=== PATIENT | female | born 1990 | race Caucasian/White ===

== ENCOUNTER 2019-03-05 15:39 | Emergency (ER) | payer MEDICAID ==
[~2019-03-05] VITALS: Ht 152.4 cm; Wt 68.2 kg
--- NOTE | 2019-03-05 16:11 | NUR ---
DR. CAMPBELL NOTIFIED AND SITTER ORDERED. SITTER IN LINE OF SIGHT. NOTIFIED CHARGE NURSE AND ATTENDING IN REGARDS TO ASSESSMENT FINDINGS. RESOURCES GIVEN TO PT AND SAFETY PLAN INTITATED.
[2019-03-05 16:16] VITALS: Ht 152.4 cm; Wt 68.2 kg
[2019-03-05] MEDS ORDERED: LITHIUM CARBON300 MG PO (16:17)
[2019-03-05] MEDS ORDERED: KLONOPIN1 MG PO (16:17)
[2019-03-05] MEDS ORDERED: PROZAC40 MG PO (16:18)
[2019-03-05] MEDS ORDERED: MINIPRESS2 MG PO (16:22)
[2019-03-05 16:37] LABS: APPEARANCE SL CLDY (CLEAR); BILIRUBIN NEGATIVE (NEGATIVE); COLOR YELLOW (YELLOW); GLUCOSE NEGATIVE (NEGATIVE); KETONE NEGATIVE (NEGATIVE); NITRITE NEGATIVE (NEGATIVE); PROTEIN NEGATIVE (NEGATIVE); SPECIFIC GRAVITY 1.005 (1.005-1.020); UROBILINOGEN NORMAL (NORMAL)
[2019-03-05 16:46] LABS: BASOPHILS 0.4 % (0-2); EOSINOPHILS 2.5 % (0-7); HEMATOCRIT 40.1 % (36.0-48.0); HEMOGLOBIN 13.6 g/dL (12-16); IMMATURE GRANULOCYTES 0.2 % (0-5); LYMPHOCYTES 30.8 % (15-50); MCHC 33.9 g/dL (31.0-37.0); MCV 88.5 fL (80.0-100.0); MEAN PLATELET VOLUME 9.6 fL (7.4-10.4); MONOCYTES 6.9 % (2-11); NEUTROPHILS 59.2 % (40-80); PLATELET COUNT 223 10x3/uL (130-400); RBC 4.53 10x6/uL (4.00-5.40); RDW 13.1 % (11.5-14.5); WBC 9.7 10x3/uL (4.8-10.8)
[2019-03-05 16:46] LABS: UDS - AMPHET NEGATIVE QUAL (NEGATIVE); UDS - BENZO NEGATIVE QUAL (NEGATIVE); UDS - COCAINE NEGATIVE QUAL (NEGATIVE); UDS - OPIATE NEGATIVE QUAL (NEGATIVE); UDS - PCP NEGATIVE QUAL (NEGATIVE); UDS - THC NEGATIVE QUAL (NEGATIVE)
[2019-03-05 16:57] LABS: UDS - BARB NEGATIVE QUAL (NEGATIVE)
[2019-03-05 16:59] LABS: HCG SERUM NEGATIVE (NEGATIVE)
[2019-03-05 17:08] LABS: ALBUMIN 3.3 g/dL (3.4-5.0); ALKALINE PHOSPHATASE 60 U/L (46-116); ALT (SGPT) 39 U/L (10-68); BILIRUBIN - TOTAL 0.23 mg/dL (0.2-1.3); CALC OSMOLALITY 271 mosm/kg (275-300); CALCIUM 8.1 mg/dL (8.5-10.1); CARBON DIOXIDE 30.1 mmol/L (21.0-32.0); CHLORIDE - SERUM 103 mmol/L (98-107); CREATININE - SERUM 0.9 mg/dL (0.6-1.3); GLUCOSE 86 mg/dL (74-106); POTASSIUM - SERUM 4.3 mmol/L (3.5-5.1); PROTEIN - SERUM 6.9 g/dL (6.4-8.2); SODIUM 137 mmol/L (136-145); UREA NITROGEN 11 mg/dL (7-18); eGFR NON AFRICAN AMERICAN 79 mL/min (90-120)
[2019-03-05 23:32] VITALS: BP 107/70
== END 2019-03-05 23:33 ==
LOC: D.ER 15:39
PROVIDERS: Family Medicine
DX: R45.851 Suicidal ideations (principal)